=== PATIENT | male | born 1945 | race African-American/Black ===

== ENCOUNTER 2019-03-05 10:25 | Inpatient (IN) | payer MEDICARE, MEDICAID ==
[~2019-03-05] VITALS: Ht 167.6 cm; Wt 86.2 kg
[2019-03-05] MEDS ORDERED: ASPIRIN 81MG TABLET PO ONE (11:30)
[2019-03-05] MEDS ORDERED: NITROGLYCERIN 0.4MG TABLET SL SL PRN (11:30)
[2019-03-05 12:02] LABS: HEMOGLOBIN. 17.6 g/dL (14.0-18.0); MEAN CORPUSCULAR VOLUME 91.5 fL (80.0-94.0); MEAN PLATELET VOLUME 7.1 fl (7.4-10.4); PLATELET 231 x1000/uL (130-400); RED BLOOD CELL COUNT 5.68 mill/uL (4.7-6.1); RED CELL DISTRIBUTION WIDTH 13.6 % (11.6-14.6)
[2019-03-05 12:11] LABS: CHLORIDE 103 mEq/L (98-107)
[2019-03-05 12:12] LABS: INR 1.1; PROTHROMBIN TIME 10.8 sec (9.6-11.0)
[2019-03-05 12:47] LABS: PLATELET ESTIMATE NORMAL
[2019-03-05] MEDS ORDERED: MORPHINE SULFATE 4 MG/ML CPJ (NOT FOR IM USE) IV STA (15:21)
[2019-03-05] MEDS ORDERED: ONDANSETRON HCL 4MG/2ML INJ IV STA (15:21)
[2019-03-05] MEDS ORDERED: IOHEXOL-350 100 ML BOTTLE ONE (15:51)
[2019-03-05 18:30] VITALS: BP 98/68
[2019-03-05] MEDS ORDERED: ACETAMINOPHEN 325MG TABLET PO PRN (19:30)
[2019-03-05] MEDS ORDERED: MAGNESIUM/ALUMINUM HYDROXIDE/SIMETHICONE 30ML UDC PO PRN (19:30)
[2019-03-05] MEDS ORDERED: HYDROMORPHONE HCL/PF 2MG/ML CPJ IV PRN (19:30)
[2019-03-05] MEDS ORDERED: CLONIDINE 0.1MG TABLET PO PRN (19:30)
[2019-03-05] MEDS ORDERED: IPRATROPIUM/ALBUTEROL 0.5-3(2.5)MG/3ML NEB HHN PRN (19:30)
[2019-03-05] MEDS ORDERED: ONDANSETRON HCL 4MG/2ML INJ IV PRN (19:30)
[2019-03-05] MEDS ORDERED: GUAIFENESIN 200MG/10ML SUGAR FREE UDC PO PRN (19:30)
[2019-03-05] MEDS ORDERED: DIPHENHYDRAMINE 50MG/ML VIAL IV PRN (19:30)
[2019-03-05] MEDS ORDERED: HYDROXYZINE 25MG TABLET PO PRN (19:30)
[2019-03-05 20:00] VITALS: BP 108/70
[2019-03-05] MEDS ORDERED: POTASSIUM CHLORIDE 20MEQ TABLET SR PO NR ×2 (20:00→23:00)
[2019-03-05] MEDS ORDERED: REGADENOSON 0.4 MG/5 ML IV SCH (20:45)
[2019-03-05] MEDS: DOXAZOSIN MESYLATE 2MG TABLET PO SCH (21:00)
[2019-03-05] MEDS: PROPRANOLOL HCL 10MG TABLET PO SCH (21:00)
[2019-03-05] MEDS ORDERED: LIDOCAINE HCL 20 MG/ML 100ML BOTTLE MM PRN (21:00)
[2019-03-05] MEDS ORDERED: SUCRALFATE 1G TABLET PO SCH (21:00)
[2019-03-05] MEDS: MORPHINE SULFATE 15MG TABLET SR PO SCH (21:25)
[2019-03-05] MEDS: SUCRALFATE 1G TABLET PO SCH (21:27)
[2019-03-05] MEDS: SODIUM CHLORIDE 0.9% INJ 3ML FLUSH IVF SCH (21:29)
[2019-03-05] MEDS: LEVETIRACETAM 500MG/5ML CUP PO SCH (21:29)
[2019-03-05] MEDS: LEVOFLOXACIN 500MG PREMIX 100 ML IV SCH (21:38)
[2019-03-05] MEDS: AZITHROMYCIN 500 MG in DEXT 5% WATER 250 ML IV SCH (22:49)
[2019-03-06] VITALS (7 sets, daily range): BP systolic 96–119; BP diastolic 52–69
[2019-03-06] MEDS: IPRATROPIUM/ALBUTEROL 0.5-3(2.5)MG/3ML NEB HHN SCH ×6 (01:31→21:30)
[2019-03-06] MEDS ORDERED: PROP10TA10 PO (02:03)
[2019-03-06] MEDS ORDERED: SUCR1TAB PO (02:05)
[2019-03-06] MEDS ORDERED: MORP15TA54 MT (02:11)
[2019-03-06] MEDS ORDERED: DOXA1TAB2 MT (02:11)
[2019-03-06] MEDS ORDERED: LEVA15HF4 IH (02:11)
[2019-03-06] MEDS ORDERED: ONDA8TAB59 MT (02:11)
[2019-03-06] MEDS ORDERED: DULO60CA64 MT (02:11)
[2019-03-06] MEDS ORDERED: NALO4SPR NS (02:11)
[2019-03-06] MEDS ORDERED: FINA5TAB11 PO (02:11)
[2019-03-06] MEDS ORDERED: MOME13HF INH (02:11)
[2019-03-06] MEDS ORDERED: HYDR-3992 MT (02:11)
[2019-03-06] MEDS ORDERED: XLV MT (02:11)
[2019-03-06] MEDS ORDERED: LEVE10006 MT (02:11)
[2019-03-06] MEDS: SODIUM CHLORIDE 0.9% INJ 3ML FLUSH IVF SCH ×3 (05:52→22:07)
[2019-03-06 08:04] LABS: BASOPHILS % 0.3 % (0.0-2.0); EOSINOPHILS % 0.4 % (0.0-5.0); HEMATOCRIT. 44.4 % (42.0-52.0); HEMOGLOBIN. 14.9 g/dL (14.0-18.0); LYMPHOCYTES % 16.5 % (20.0-50.0); MEAN CORPUSCULAR HEMOGLOBIN 31.4 pg (28.0-32.0); MEAN CORPUSCULAR VOLUME 93.5 fL (80.0-94.0); MEAN PLATELET VOLUME 7.3 fl (7.4-10.4); MONOCYTES % 9.7 % (2.0-8.0); NEUTROPHILS % 73.1 % (40.0-76.0); PLATELET 167 x1000/uL (130-400); RED BLOOD CELL COUNT 4.74 mill/uL (4.7-6.1); RED CELL DISTRIBUTION WIDTH 13.7 % (11.6-14.6)
[2019-03-06 08:13] LABS: LDL CHOLESTEROL 74 mg/dL (5-100)
[2019-03-06 08:15] LABS: HDL CHOLESTEROL 44 mg/dL (40-59)
[2019-03-06 08:38] LABS: CHLORIDE 113 mEq/L (98-107)
[2019-03-06] MEDS: PROPRANOLOL HCL 10MG TABLET PO SCH ×3 (09:00→21:00)
[2019-03-06] MEDS: BUDESONIDE 0.5MG/2ML NEB HHN SCH ×2 (10:43→21:27)
[2019-03-06] MEDS: LEVETIRACETAM 500MG/5ML CUP PO SCH ×2 (10:51→20:45)
[2019-03-06] MEDS: DULOXETINE HCL 60MG DR CAPSULE PO SCH (10:52)
[2019-03-06] MEDS: ASPIRIN 81MG EC TABLET PO SCH (10:52)
[2019-03-06] MEDS: MORPHINE SULFATE 15MG TABLET SR PO SCH ×2 (10:52→20:47)
[2019-03-06] MEDS: FINASTERIDE 5MG TABLET PO SCH (10:53)
[2019-03-06] MEDS: SUCRALFATE 1G TABLET PO SCH ×2 (10:53→17:41)
[2019-03-06] MEDS: AZITHROMYCIN 500 MG in DEXT 5% WATER 250 ML IV SCH (20:45)
[2019-03-06] MEDS: DOXAZOSIN MESYLATE 2MG TABLET PO SCH (20:49)
[2019-03-06] MEDS: LEVOFLOXACIN 500MG PREMIX 100 ML IV SCH (22:07)
[2019-03-07] VITALS: BP 95/58
[2019-03-07] MEDS: IPRATROPIUM/ALBUTEROL 0.5-3(2.5)MG/3ML NEB HHN SCH ×6 (00:57→19:51)
[2019-03-07 04:00] VITALS: BP 92/65
[2019-03-07] MEDS: SODIUM CHLORIDE 0.9% INJ 3ML FLUSH IVF SCH (05:07)
[2019-03-07] MEDS: BUDESONIDE 0.5MG/2ML NEB HHN SCH ×2 (08:27→19:51)
[2019-03-07] MEDS: LEVETIRACETAM 500MG/5ML CUP PO SCH ×2 (08:34→21:23)
[2019-03-07] MEDS: ASPIRIN 81MG EC TABLET PO SCH (08:34)
[2019-03-07] MEDS: DULOXETINE HCL 60MG DR CAPSULE PO SCH (08:34)
[2019-03-07] MEDS: SUCRALFATE 1G TABLET PO SCH ×2 (08:35→17:00)
[2019-03-07] MEDS: MORPHINE SULFATE 15MG TABLET SR PO SCH ×2 (08:35→21:26)
[2019-03-07] MEDS: FINASTERIDE 5MG TABLET PO SCH (08:35)
[2019-03-07 16:00] VITALS: BP 115/55
[2019-03-07] MEDS: AZITHROMYCIN 500 MG in DEXT 5% WATER 250 ML IV SCH (19:25)
[2019-03-07 20:00] VITALS: BP 108/71
[2019-03-07] MEDS: PROPRANOLOL HCL 10MG TABLET PO SCH (21:00)
[2019-03-07] MEDS: DOXAZOSIN MESYLATE 2MG TABLET PO SCH (21:00)
[2019-03-07] MEDS: TEMAZEPAM 15MG CAPSULE PO PRN (21:24)
[2019-03-07] MEDS: LEVOFLOXACIN 500MG PREMIX 100 ML IV SCH (21:24)
[2019-03-08] VITALS: BP 105/69
[2019-03-08] MEDS: IPRATROPIUM/ALBUTEROL 0.5-3(2.5)MG/3ML NEB HHN SCH ×7 (00:11→20:49)
[2019-03-08 04:00] VITALS: BP 91/64
[2019-03-08] MEDS: FINASTERIDE 5MG TABLET PO SCH (05:56)
[2019-03-08 08:00] VITALS: BP 103/61
[2019-03-08] MEDS: BUDESONIDE 0.5MG/2ML NEB HHN SCH ×2 (08:41→20:48)
[2019-03-08] MEDS: PROPRANOLOL HCL 10MG TABLET PO SCH ×2 (09:00→21:00)
[2019-03-08] MEDS: MORPHINE SULFATE 15MG TABLET SR PO SCH ×2 (09:31→21:43)
[2019-03-08] MEDS: LEVETIRACETAM 500MG/5ML CUP PO SCH ×2 (09:31→21:43)
[2019-03-08] MEDS: ASPIRIN 81MG EC TABLET PO SCH (09:31)
[2019-03-08] MEDS: DULOXETINE HCL 60MG DR CAPSULE PO SCH (09:32)
[2019-03-08] MEDS: SUCRALFATE 1G TABLET PO SCH ×2 (09:32→17:13)
[2019-03-08 12:00] VITALS: BP 94/64
[2019-03-08 16:00] VITALS: BP 98/87
[2019-03-08 20:00] VITALS: BP 108/69
[2019-03-08] MEDS ORDERED: AZITHROMYCIN 500 MG TABLET PO SCH (20:00)
[2019-03-08] MEDS: DOXAZOSIN MESYLATE 2MG TABLET PO SCH (21:00)
[2019-03-08] MEDS ORDERED: LEVOFLOXACIN 500MG TABLET PO SCH (21:00)
[2019-03-08] MEDS: SODIUM CHLORIDE 0.9% INJ 3ML FLUSH IVF SCH (21:44)
[2019-03-08] MEDS: TEMAZEPAM 15MG CAPSULE PO PRN (22:35)
[2019-03-09] VITALS: BP 95/56
[2019-03-09 04:00] VITALS: BP 98/59
[2019-03-09] MEDS: FINASTERIDE 5MG TABLET PO SCH (06:37)
[2019-03-09] MEDS: SODIUM CHLORIDE 0.9% INJ 3ML FLUSH IVF SCH ×2 (06:39→14:00)
[2019-03-09 08:00] VITALS: BP 103/77
[2019-03-09] MEDS: MORPHINE SULFATE 15MG TABLET SR PO SCH (09:00)
[2019-03-09] MEDS: PROPRANOLOL HCL 10MG TABLET PO SCH (09:00)
[2019-03-09] MEDS: LEVETIRACETAM 500MG/5ML CUP PO SCH (09:00)
[2019-03-09] MEDS: SUCRALFATE 1G TABLET PO SCH (09:00)
[2019-03-09] MEDS: ASPIRIN 81MG EC TABLET PO SCH (09:00)
[2019-03-09] MEDS: DULOXETINE HCL 60MG DR CAPSULE PO SCH (09:00)
[2019-03-09] MEDS: IPRATROPIUM/ALBUTEROL 0.5-3(2.5)MG/3ML NEB HHN SCH ×2 (09:09→12:46)
[2019-03-09 12:00] VITALS: BP 101/71
[2019-03-09 14:40] VITALS: BP 101/71
[2019-03-09 16:00] VITALS: BP 112/80
== END 2019-03-09 16:22 | disposition home or self-care (01) | DRG 101 ==
LOC: ER 10:25 → 5WST 17:33 → EDBEDREQTM 17:35 → EDBEDREQ 17:35 → ENRESERV 17:46
PROVIDERS: ADMIT Internal Medicine; ATTEND Internal Medicine
DX: G40.909 Epilepsy, unspecified, not intractable, without status epilepticus (principal); R65.10 Systemic inflammatory response syndrome (SIRS) of non-infectious origin without acute organ dysfunction; C34.90 Malignant neoplasm of unspecified part of unspecified bronchus or lung; R07.89 Other chest pain; E87.6 Hypokalemia; I10 Essential (primary) hypertension; E78.5 Hyperlipidemia, unspecified; F32.9 Major depressive disorder, single episode, unspecified; B19.20 Unspecified viral hepatitis C without hepatic coma; Z87.891 Personal history of nicotine dependence; Z90.49 Acquired absence of other specified parts of digestive tract; Z79.899 Other long term (current) drug therapy
CPT/HCPCS: 36415; 71045; 71275; 80048; 80061; 83735; 83880; 84484; 93005; 93306; 93970; 94640; 96365; 99285; J0456; J1956; J2270; J2405; J7060; J7620; J7626; Q9967

== ENCOUNTER 2019-06-26 09:51 | Inpatient (IN) | payer MEDICARE, MEDICAID ==
[~2019-06-26] VITALS: Ht 170.2 cm; Wt 79.4 kg
[~2019-06-26 09:51] MED LIST: DOXA1TAB2 MT; DULO60CA64 MT; FINA5TAB11 PO; HYDR-3992 MT; LEVA15HF4 IH; LEVE10006 MT; MOME13HF INH; MORP15TA54 MT; NALO4SPR NS; ONDA8TAB59 MT; PROP10TA10 PO; SUCR1TAB PO; XLV MT
[2019-06-26] MEDS ORDERED: ALBUTEROL (0.083%) 2.5MG/3ML NEB HHN ONE (10:30)
[2019-06-26] MEDS ORDERED: ONDANSETRON HCL 4MG/2ML INJ IV ONE (10:30)
[2019-06-26 10:40] LABS: BASOPHILS % 0.7 % (0.0-2.0); EOSINOPHILS % 2.4 % (0.0-5.0); HEMATOCRIT. 40.7 % (42.0-52.0); LYMPHOCYTES % 12.7 % (20.0-50.0); MEAN CORPUSCULAR HEMOGLOBIN 31.7 pg (28.0-32.0); MEAN CORPUSCULAR VOLUME 92.3 fL (80.0-94.0); MEAN PLATELET VOLUME 7.3 fl (7.4-10.4); MONOCYTES % 9.4 % (2.0-8.0); NEUTROPHILS % 74.8 % (40.0-76.0); PLATELET 214 x1000/uL (130-400); RED BLOOD CELL COUNT 4.41 mill/uL (4.7-6.1); RED CELL DISTRIBUTION WIDTH 13.5 % (11.6-14.6)
[2019-06-26 10:42] LABS: CHLORIDE 108 mEq/L (98-107)
[2019-06-26] MEDS ORDERED: MAGNESIUM/ALUMINUM HYDROXIDE/SIMETHICONE 30ML UDC PO PRN (19:45)
[2019-06-26] MEDS ORDERED: IPRATROPIUM/ALBUTEROL 0.5-3(2.5)MG/3ML NEB HHN SCH (19:45)
[2019-06-26] MEDS ORDERED: ONDANSETRON HCL 4MG/2ML INJ IV PRN (19:45)
[2019-06-26] MEDS ORDERED: CLONIDINE 0.1MG TABLET PO PRN (19:45)
[2019-06-26] MEDS ORDERED: BENZONATATE 100MG CAPSULE PO PRN (19:45)
[2019-06-26] MEDS ORDERED: DIPHENHYDRAMINE 50MG/ML VIAL IV PRN (19:45)
[2019-06-26] MEDS: LEVETIRACETAM 500MG TABLET PO SCH (21:57)
[2019-06-26 23:55] VITALS: BP 119/71
[2019-06-27] MEDS: ACETAMINOPHEN 325MG TABLET PO PRN (00:45)
[2019-06-27] MEDS: METHYLPREDNISOLONE SOD SUCC 40 MG/ML VIAL IV SCH ×3 (02:05→17:18)
[2019-06-27] MEDS: GUAIFENESIN 200MG/10ML SUGAR FREE UDC PO PRN (02:05)
[2019-06-27 04:00] VITALS: BP 114/72
[2019-06-27] MEDS ORDERED: IPRATROPIUM/ALBUTEROL 0.5-3(2.5)MG/3ML NEB HHN SCH (06:00)
[2019-06-27] MEDS: SODIUM CHLORIDE 0.9% INJ 3ML FLUSH IVF SCH ×3 (06:06→21:13)
[2019-06-27 08:00] VITALS: BP 114/79
[2019-06-27] MEDS: FINASTERIDE 5MG TABLET PO SCH (09:19)
[2019-06-27] MEDS: LEVETIRACETAM 500MG TABLET PO SCH ×2 (09:20→21:12)
[2019-06-27] MEDS: DULOXETINE HCL 60MG DR CAPSULE PO SCH (09:20)
[2019-06-27] MEDS: FAMOTIDINE 20MG TABLET PO SCH ×2 (11:20→21:12)
[2019-06-27 12:00] VITALS: BP 129/75
[2019-06-27 16:00] VITALS: BP 136/89
[2019-06-27 20:00] VITALS: BP 115/81
[2019-06-27] MEDS: DOXAZOSIN MESYLATE 2MG TABLET PO SCH (21:13)
[2019-06-28] VITALS: BP 94/55
[2019-06-28] MEDS: IPRATROPIUM/ALBUTEROL 0.5-3(2.5)MG/3ML NEB HHN PRN ×3 (01:10→21:01)
[2019-06-28 04:00] VITALS: BP 91/65
[2019-06-28] MEDS: SODIUM CHLORIDE 0.9% INJ 3ML FLUSH IVF SCH ×2 (06:17→14:02)
[2019-06-28 08:00] VITALS: BP 102/64
[2019-06-28] MEDS: DULOXETINE HCL 60MG DR CAPSULE PO SCH (09:39)
[2019-06-28] MEDS: FINASTERIDE 5MG TABLET PO SCH (09:39)
[2019-06-28] MEDS: LEVETIRACETAM 500MG TABLET PO SCH ×2 (09:39→20:09)
[2019-06-28] MEDS: FAMOTIDINE 20MG TABLET PO SCH ×2 (09:39→20:08)
[2019-06-28] MEDS: PREDNISONE 20MG TABLET PO SCH (09:39)
[2019-06-28] MEDS: GUAIFENESIN 200MG/10ML SUGAR FREE UDC PO PRN (09:43)
[2019-06-28 12:00] VITALS: BP 103/69
[2019-06-28 16:00] VITALS: BP 113/70
[2019-06-28] MEDS ORDERED: LORAZEPAM 2MG/ML CPJ IV PRN (19:30)
[2019-06-28] MEDS ORDERED: KETOROLAC 30MG/ML VIAL IV PRN (19:30)
[2019-06-28] MEDS: ACETAMINOPHEN 325MG TABLET PO PRN (19:33)
[2019-06-28 20:00] VITALS: BP 115/75
[2019-06-28] MEDS: DOXAZOSIN MESYLATE 2MG TABLET PO SCH (20:09)
[2019-06-28] MEDS ORDERED: TEMAZEPAM 15MG CAPSULE PO PRN (21:00)
[2019-06-29] VITALS: BP 104/64
[2019-06-29] MEDS: SODIUM CHLORIDE 0.9% INJ 3ML FLUSH IVF SCH (00:44)
[2019-06-29 04:00] VITALS: BP 95/65
[2019-06-29] MEDS: IPRATROPIUM/ALBUTEROL 0.5-3(2.5)MG/3ML NEB HHN PRN ×2 (04:51→12:53)
[2019-06-29 08:00] VITALS: BP 92/71
[2019-06-29] MEDS: DULOXETINE HCL 60MG DR CAPSULE PO SCH (08:55)
[2019-06-29] MEDS: PREDNISONE 20MG TABLET PO SCH (08:55)
[2019-06-29] MEDS: FAMOTIDINE 20MG TABLET PO SCH (08:55)
[2019-06-29] MEDS: FINASTERIDE 5MG TABLET PO SCH (08:55)
[2019-06-29] MEDS: LEVETIRACETAM 500MG TABLET PO SCH (08:55)
[2019-06-29 12:00] VITALS: BP 113/70
[2019-06-29 13:26] VITALS: BP 113/70
== END 2019-06-29 15:10 | disposition home or self-care (01) | DRG 190 ==
LOC: ER 10:34 → 7WST 13:34 → EDBEDREQ 13:36 → EDBEDREQTM 13:36 → ENRESERV 23:09
PROVIDERS: ADMIT Internal Medicine; ATTEND Internal Medicine
DX: J44.1 Chronic obstructive pulmonary disease with (acute) exacerbation (principal); J96.90 Respiratory failure, unspecified, unspecified whether with hypoxia or hypercapnia; C34.90 Malignant neoplasm of unspecified part of unspecified bronchus or lung; E11.9 Type 2 diabetes mellitus without complications; F32.9 Major depressive disorder, single episode, unspecified; G40.909 Epilepsy, unspecified, not intractable, without status epilepticus; I10 Essential (primary) hypertension; Z87.891 Personal history of nicotine dependence; Z90.49 Acquired absence of other specified parts of digestive tract; Z80.9 Family history of malignant neoplasm, unspecified
CPT/HCPCS: 36415; 71045; 71250; 76700; 80053; 82962; 83880; 84484; 85025; 93005; 93970; 94640; 99285; J2405; J2920; J7512